=== PATIENT | male | born 1975 | race Caucasian/White ===

== ENCOUNTER 2021-03-22 14:52 | Emergency (ER) | payer BC ==
[2021-03-22 15:57] VITALS: BP 148/86; PULSE 69
[2021-03-22] MEDS ORDERED: Ketorolac 30 MG/ML SDV IM ONE (16:05)
--- NOTE | 2021-03-22 16:16 | EDM.PDOC ---
ED HPI GENERAL MEDICAL PROBLEM - General Chief Complaint: Headache Stated Complaint: LEFT SIDE HEAD PAIN Time Seen by Provider: 03/22/21 15:55 Source of Information: Reports: Patient, Old Records, RN History Limitations: Reports: No Limitations - History of Present Illness INITIAL COMMENTS - FREE TEXT/NARRATIVE: 46 yo male presents with L sided ERICKSON for about a week. Sx's ebb and juan, but do not go away. Gets partial relief with OTC agents. Saw Dr. Lau who put him on meds and he is not better yet. A head CT scan was discussed, but not yet scheduled. He had a ESR of 9 in the clinic. He decided to come to the ER because his ERICKSON was severe, now that he is here it is quite a bit better. Has mildly slurred speech at times with the ERICKSON. He had the same exact thing about 5 yrs ago and got relief with Toradol and his head CT then was neg. No fever or nausea. Onset: Gradual Onset Date: 03/15/21 Duration: Week(s): (1), Waxing/Waning Location: Reports: Head Quality: Reports: Ache Severity: Moderate (now, is severe at times) Improves with: Reports: Medication Worsens with: Reports: Other (? time) Context: Reports: Other (See HPI) Associated Symptoms: Reports: Other (mild slurring at times when ERICKSON is severe. ). Denies: Fever/Chills Treatments PAIRER ODDS: Reports: Acetaminophen, Other (see below) (Topamax) Left Head Pain Score (Numeric/FACES): 5 - Related Data Allergies Allergy/AdvReac Type Severity Reaction Status Date / Time morphine Allergy Muscle Verified 03/22/21 15:45 Aches Home Meds: Home Meds Ketorolac [Toradol] 10 mg PO Q6H PRN #12 tab 03/22/21 [Rx] Topiramate 25 mg PO BID 03/22/21 [History] Past Medical History - Past Health History Medical/Surgical History: Denies Medical/Surgical History Musculoskeletal History: Reports: Fracture - Past Surgical History Musculoskeletal Surgical History: Reports: Other (See Below) Other Musculoskeletal Surgeries/Procedures:: pins in right finger Social & Family History - Tobacco Use Tobacco Use Status *Q: Heavy Tobacco User Years of Tobacco use: 20 Packs/Tins Daily: 1 - Caffeine Use Caffeine Use: Reports: Energy Drinks - Alcohol Use Days Per Week of Alcohol Use: 2 Number of Drinks Per Day: 4 Total Drinks Per Week: 8 - Recreational Drug Use Recreational Drug Use: No ED ROS GENERAL - Review of Systems Review Of Systems: See Below Constitutional: Reports: No Symptoms HEENT: Reports: No Symptoms Respiratory: Reports: No Symptoms Cardiovascular: Reports: No Symptoms GI/Abdominal: Reports: No Symptoms. Denies: Nausea Musculoskeletal: Denies: Neck Pain Skin: Reports: Erythema (face gets red when ERICKSON is severe) Neurological: Reports: Headache, Other (intermittent slurring) Psychiatric: Reports: No Symptoms - Physical Exam Exam: See Below Exam Limited By: No Limitations General Appearance: Alert, WD/WN, No Apparent Distress Eye Exam: Bilateral Eye: EOMI, Normal Inspection, PERRL Ears: Normal External Exam, Normal Canal, Hearing Grossly Normal, Normal TMs Nose: Normal Inspection, No Blood Throat/Mouth: Normal Inspection, Normal Lips, Normal Oropharynx, Normal Voice, No Airway Compromise Head Exam: Atraumatic, Normocephalic Neck: Normal Inspection Respiratory/Chest: No Respiratory Distress, Lungs Clear, Normal Breath Sounds, No Accessory Muscle Use Cardiovascular: Regular Rate, Rhythm, No Edema GI/Abdominal: Normal Bowel Sounds, Soft, Non-Tender, No Distention Neuro Exam (Abbreviated): Alert, Oriented, CN II-XII Intact, Normal Cognition, No Motor/Sensory Deficits Back Exam: Normal Inspection Extremities: Normal Inspection, Normal Range of Motion, Non-Tender, No Pedal Edema Psychiatric: Normal Affect, Normal Mood Skin Exam: Warm, Dry, Intact, Normal Color, No Rash Course - Vital Signs Last Recorded V/S: Last Vital Signs Temp 36.8 C 03/22/21 15:43 Pulse 69 03/22/21 15:43 Resp 16 03/22/21 15:43 BP 148/86 H 03/22/21 15:43 Pulse Ox 98 03/22/21 15:43 - Orders/Labs/Meds Meds: Medications Discontinued Medications Generic Name Dose Route Start Last Admin Trade Name Macq PRN Reason Stop Dose Admin Ketorolac Tromethamine 30 mg 03/22/21 16:05 03/22/21 16:34 Ketorolac 30 Mg/Ml Sdv IM 03/22/21 16:06 30 mg ONETIME ONE Administration - Re-Assessments/Exams Free Text/Narrative Re-Assessment/Exam: 03/22/21 17:25 ERICKSON much better, but not gone Departure - Departure Time of Disposition: 17:30 Disposition: Home, Self-Care 01 Condition: Fair Clinical Impression: Left-sided headache - Discharge Information *PRESCRIPTION DRUG MONITORING PROGRAM REVIEWED*: Not Applicable *COPY OF PRESCRIPTION DRUG MONITORING REPORT IN PATIENT MAKENNA: Not Applicable Instructions: General Headache Without Cause, [id number] Referrals: Geoff Lau MD [Primary Care Provider] - Forms: ED Department Discharge Additional Instructions: Use Toradol with food as needed for ERICKSON. You may safely add acetaminophen for more relief if needed. Return for your MRI on Monday as discussed, the results should be available by mid day . Return or see your provider as needed. Continue your Topiramate for now as a preventative agent. Sepsis Event Note (ED) - Evaluation Sepsis Screening Result: No Definite Risk - Focused Exam Vital Signs: Vital Signs Temp Pulse Resp BP Pulse Ox 03/22/21 15:43 36.8 C 69 16 148/86 H 98
== END 2021-03-22 17:53 | disposition home or self-care (01) ==
LOC: JP.ED 14:52
DX: R51.9 Headache, unspecified (principal); Z88.5 Allergy status to narcotic agent; Z72.0 Tobacco use
CPT/HCPCS: 96372; 99283; J1885